=== PATIENT | male | born 1995 | race African-American/Black ===

== ENCOUNTER 2020-09-08 20:10 | Emergency (ER) | payer MEDICAID ==
[~2020-09-08] VITALS: Ht 177.8 cm; Wt 91.0 kg
[2020-09-08] MEDS ORDERED: ONDANSETRON HCL 4MG/2ML INJ IV STA (20:19)
[2020-09-08] MEDS ORDERED: MORPHINE SULFATE 4 MG/ML CPJ (NOT FOR IM USE) IV STA (20:19)
[2020-09-08] MEDS ORDERED: TETANUS, DIPHTHERIA, PERTUSSIS VAC/PF 0.5ML (>7YR OLD) IM ONE (20:30)
[2020-09-08] MEDS ORDERED: CEFAZOLIN 1000MG PREMIX 50 ML IV ONE (20:30)
[2020-09-08] MEDS ORDERED: LIDOCAINE HCL/EPINEPHRINE 1%-EPI 1:100,000 10 ML VIAL IJ ONE (21:45)
[2020-09-08] MEDS ORDERED: LIDOCAINE HCL/EPINEPHRINE 1%-EPI 1:100,000 20 ML VIAL INFIL NR (22:00)
[2020-09-08] MEDS ORDERED: CEPH500C2 MT (22:40)
[2020-09-08] MEDS ORDERED: IBUP-2029 MT (22:41)
[2020-09-08 23:15] VITALS: BP 129/77
== END 2020-09-08 23:20 | disposition home or self-care (01) ==
LOC: EDBD 20:10 → ER 20:10
DX: S41.132A Puncture wound without foreign body of left upper arm, initial encounter (principal); S91.341A Puncture wound with foreign body, right foot, initial encounter; M79.5 Residual foreign body in soft tissue; Z79.899 Other long term (current) drug therapy; W33.01XA Accidental discharge of shotgun, initial encounter; Y93.89 Activity, other specified; Y92.89 Other specified places as the place of occurrence of the external cause; Y99.8 Other external cause status
CPT/HCPCS: 10120; 71045; 73060; 73630; 90471; 90715; 93005; 96365; 96375; 99285; J0690; J2270; J2405; J3490; Z7610; 12001; 28190